=== PATIENT | female | born 1970 | race Caucasian/White ===

== ENCOUNTER 2018-11-06 09:57 | Inpatient (IN) | payer BC ==
[~2018-11-06] VITALS: Ht 177.8 cm; Wt 127.6 kg
[2018-11-06 10:01] VITALS: Ht 177.8 cm; Wt 127.6 kg
[2018-11-06 10:50] LABS: BASOPHIL % 0.7 % (0-2)
[2018-11-06 10:53] LABS: PLATELET COUNT 102 x10^3mcL (130-400)
[2018-11-06 11:20] LABS: CARBON DIOXIDE 28.9 mmol/L (21-32); CHLORIDE SERUM 103 mmol/L (98-107); CREATININE SERUM 0.9 mg/dL (0.6-1.0); GFR1 > 60 mL/min; GLUCOSE SERUM 108 mg/dL (74-106); POTASSIUM SERUM 3.8 mmol/L (3.5-5.1); SODIUM SERUM 140 mmol/L (136-145)
[2018-11-06 11:24] LABS: ALBUMIN 3.7 g/dL (3.4-5.0); ALKALINE PHOSPHATASE 52 U/L (46-116); ALT/SGPT 37 U/L (14-59); AST/SGOT 23 U/L (15-37); BILIRUBIN TOTAL 0.36 mg/dL (0.20-1.00); TOTAL PROTEIN, SERUM 7.8 g/dL (6.4-8.2)
[2018-11-06] MEDS ORDERED: LISINOPRIL2.5 MG (12:39)
[2018-11-06] MEDS ORDERED: VAS1025 (12:40)
[2018-11-06 13:44] VITALS: BP 122/83
[2018-11-06 14:05] LABS: CHOLESTEROL/HDL RATIO 4.6
[2018-11-06 17:06] VITALS: BP 122/90
[2018-11-06 21:07] VITALS: BP 117/69
[2018-11-07 07:01] LABS: CALCIUM 8.6 mg/dL (8.5-10.1); CARBON DIOXIDE 28.7 mmol/L (21-32); CHLORIDE SERUM 105 mmol/L (98-107); GFR1 > 60 mL/min; GLUCOSE SERUM 108 mg/dL (74-106); POTASSIUM SERUM 3.8 mmol/L (3.5-5.1); SODIUM SERUM 142 mmol/L (136-145)
[2018-11-07 08:05] LABS: BASOPHIL % 0.8 % (0-2); PLATELET COUNT 80 x10^3mcL (130-400); RED CELL DISTRIBUTION WIDTH 12.9 % (11.5-14.5)
[2018-11-07] MEDS ORDERED: NORCO1 TA2 PO (08:20)
[2018-11-07 08:27] VITALS: BP 117/69
[2018-11-07 08:58] VITALS: BP 124/81
== END 2018-11-07 10:05 | disposition home or self-care (01) | DRG 313 ==
LOC: ED 09:57 → DU 12:21
PROVIDERS: Emergency Medicine; ADMIT Internal Medicine
DX: R07.89 Other chest pain (principal); I10 Essential (primary) hypertension; F41.9 Anxiety disorder, unspecified; E66.9 Obesity, unspecified; Z88.6 Allergy status to analgesic agent
CPT/HCPCS: 83880; 85378; C9113; J1885; J2270; J2405; J3010; Q0092